=== PATIENT | male | born 1960 | race Caucasian/White ===

== ENCOUNTER 2017-07-26 07:50 | Emergency (ER) | payer OTHER ==
[~2017-07-26] VITALS: Ht 170.2 cm; Wt 83.0 kg
[~2017-07-26 07:50] MED LIST: CRES20TA PO; DICL75 PO; FLON0.053; HYDR-3533 PO
[2017-07-26 08:00] VITALS: BP 176/92; PULSE 64; RESP 16; TEMP 96.9; O2SAT 96
[2017-07-26] MEDS ORDERED: SODIUM CHLOR 0.9% 1000 ML INJ 1,000 ML IV SCH (08:05)
[2017-07-26] MEDS ORDERED: ROSU20 PO (08:08)
[2017-07-26] MEDS ORDERED: FLUT1SPR5 EACH NARE (08:08)
[2017-07-26] MEDS ORDERED: ONDANSETRON HCL 4 MG/2 ML VIAL IVP ONE (08:15)
[2017-07-26] MEDS ORDERED: MORPHINE SULFATE 4 MG/ML INJ IV PUSH ONE (08:15)
[2017-07-26] MEDS ORDERED: SODIUM CHLORIDE 0.9% FLUSH 10 ML FLUSH IV FLUSH PRN (08:15)
--- NOTE | 2017-07-26 08:25 | PD ---
HPI Chief Complaint: Abdominal Pain Time Seen by Provider: 08:02 Travel History International Travel<30 days: No Contact w/Intl Traveler<30days: No Traveled to known affect area: No History of Present Illness HPI Patient is a 56 -year-old male who presents to emergency with complaints of abdominal pain. Patient reports the abdominal pain began yesterday morning, his pain is lower abdominal pain with associated diarrhea. Patient with no nausea or vomiting, no fever or chills. He reports that he thought that he initially ate bad sushi 3 days ago and had a stomach bug. Reports that the pain is not going away. Patient denies any recent travels or trips. Patient denies any dysuria, hematuria, urinary urgency or frequency or dysuria. He has had a previous colonoscopy which showed hemorrhoids. PFSH Past Medical History Cancer: No Cardiovascular Problems: Yes (ATRIAL SEPTAL DEFECT REPAIR) High Cholesterol: Yes Diabetes: No Hepatitis: No Hiatal Hernia: No Hypertension: No Kidney Stones: Yes (NON-OBSTRUCTING 2007) Respiratory: No Immunizations Current: Yes Thyroid Disease: No Past Surgical History Abdominal Surgery: Yes (SEVERAL HERNIA REPAIR SURGERIES) Cardiac Surgery: Yes (ATRIAL SEPTAL DEFECT REPAIR) Genitourinary Surgery: Yes (VASECTOMY, BASKET RETRIEVAL RENAL CALC.) Pacemaker: No Other Surgery: Yes Social History Alcohol Use: Yes (WINE DAILY) Tobacco Use: No (NEVER) Substance Use: No Allergies-Medications (Allergen,Severity, Reaction): Coded Allergies: Sulfa (Sulfonamide Antibiotics) (Unverified Allergy, Unknown, 07/26/17) penicillin G (Unverified Allergy, Unknown, 07/26/17) Reported Meds & Prescriptions Reported Meds & Active Scripts Active Reported Flonase Nasal [place] (Fluticasone Nasal [place]) 50 Mcg/Act [place] 50 Mcg EACH NARE BID Crestor (Rosuvastatin Calcium) 20 Mg Tab 20 Mg PO HS Review of Systems General / Constitutional: No: Fever, Chills Eyes: No: Visual changes HENT: No: Headaches Cardiovascular: No: Chest Pain or Discomfort, Palpitations Respiratory: No: Shortness of Breath Gastrointestinal: Positive: Diarrhea, Abdominal Pain, No: Nausea, Vomiting, Constipation Genitourinary: No: Dysuria Musculoskeletal: No: Pain Skin: No Rash Neurologic: No: Weakness Psychiatric: No: Depression Endocrine: No: Polydipsia Hematologic/Lymphatic: No: Easy Bruising Physical Exam Narrative GENERAL: mild distress SKIN: Focused skin assessment warm/dry. HEAD: Atraumatic. Normocephalic. EYES: No injection or drainage. ENT: No nasal bleeding or discharge. Mucous membranes pink and moist. NECK: Trachea midline. No JVD. CARDIOVASCULAR: Regular rate and rhythm. No murmur appreciated. RESPIRATORY: No accessory muscle use. Clear to auscultation. Breath sounds equal bilaterally. GASTROINTESTINAL: Abdomen soft, increased tenderness to lower abdomen with no rebound or guarding, nondistended. Hepatic and splenic margins not palpable. MUSCULOSKELETAL: No obvious deformities. No clubbing. No cyanosis. No edema. NEUROLOGICAL: Awake and alert. No obvious cranial nerve deficits. Motor grossly within normal limits. Normal speech. PSYCHIATRIC: Appropriate mood and affect; insight and judgment normal. Data Data Last Documented VS Vital Signs Date Time Temp Pulse Resp B/P (MAP) Pulse Ox O2 Delivery O2 Flow Rate FiO2 07/26/17 08:33 63 16 147/89 (108) 94 Room Air 07/26/17 08:00 96.9 Orders Orders Complete Blood Count With Diff (07/26/17 08:05) Comprehensive Metabolic Panel (07/26/17 08:05) Lipase (07/26/17 08:05) Prothrombin Time / Inr (Pt) (07/26/17 08:05) Act Partial Throm Time (Ptt) (07/26/17 08:05) Urinalysis - C+S If Indicated (07/26/17 08:05) Ct Abd/Pel W Iv Contrast(Rout) (07/26/17 08:05) Iv Access Insert/Monitor (07/26/17 08:05) Ecg Monitoring (07/26/17 08:05) NPO (07/26/17 08:05) Morphine Inj (Morphine Inj) (07/26/17 08:15) Ondansetron Inj (Zofran Inj) (07/26/17 08:15) Sodium Chlor 0.9% 1000 Ml Inj (Ns 1000 M (07/26/17 08:05) Sodium Chloride 0.9% Flush (Ns Flush) (07/26/17 08:15) Iohexol 350 Inj (Omnipaque 350 Inj) (07/26/17 09:28) Ciprofloxacin 400 Mg Premix (Cipro 400 M (07/26/17 10:15) Metronidazole 500 Mg Inj (Flagyl 500 Mg (07/26/17 10:15) Labs Laboratory Tests Test 07/26/17 08:15 07/26/17 09:05 White Blood Count 18.3 TH/MM3 Red Blood Count 5.14 MIL/MM3 Hemoglobin 17.0 GM/DL Hematocrit 49.3 % Mean Corpuscular Volume 95.9 FL Mean Corpuscular Hemoglobin 33.0 PG Mean Corpuscular Hemoglobin Concent 34.5 % Red Cell Distribution Width 12.1 % Platelet Count 142 TH/MM3 Mean Platelet Volume 9.0 FL Neutrophils (%) (Auto) 79.0 % Lymphocytes (%) (Auto) 12.0 % Monocytes (%) (Auto) 7.2 % Eosinophils (%) (Auto) 0.6 % Basophils (%) (Auto) 1.2 % Neutrophils # (Auto) 14.5 TH/MM3 Lymphocytes # (Auto) 2.2 TH/MM3 Monocytes # (Auto) 1.3 TH/MM3 Eosinophils # (Auto) 0.1 TH/MM3 Basophils # (Auto) 0.2 TH/MM3 CBC Comment DIFF FINAL Differential Comment Prothrombin Time 11.4 SEC Prothromb Time International Ratio 1.0 RATIO Activated Partial Thromboplast Time 25.7 SEC Blood Urea Nitrogen 11 MG/DL Creatinine 0.94 MG/DL Random Glucose 138 MG/DL Total Protein 7.6 GM/DL Albumin 4.0 GM/DL Calcium Level 8.5 MG/DL Alkaline Phosphatase 59 U/L Aspartate Amino Transf (AST/SGOT) 27 U/L Alanine Aminotransferase (ALT/SGPT) 67 U/L Total Bilirubin 1.3 MG/DL Sodium Level 139 MEQ/L Potassium Level 3.9 MEQ/L Chloride Level 107 MEQ/L Carbon Dioxide Level 24.5 MEQ/L Anion Gap 8 MEQ/L Estimat Glomerular Filtration Rate 84 ML/MIN Lipase 248 U/L Urine Collection Type CLEAN CATCH Urine Color YELLOW Urine Turbidity CLEAR Urine pH 6.0 Urine Specific [place] 1.023 Urine Protein NEG mg/dL Urine Glucose (UA) NEG mg/dL Urine Ketones NEG mg/dL Urine Occult Blood TRACE Urine Nitrite NEG Urine Bilirubin NEG Urine Leukocyte Esterase NEG Urine RBC 0-3 /hpf Urine Squamous Epithelial Cells 0-5 /hpf Urine Mucus FEW /lpf Microscopic Urinalysis Comment CULT NOT INDICATED Urine Collection Time 09:05 [facility] Medical Decision Making Medical Screen Exam Complete: Yes Emergency Medical Condition: Yes Medical Record Reviewed: Yes Interpretation(s) Vital Signs Date Time Temp Pulse Resp B/P (MAP) Pulse Ox O2 Delivery O2 Flow Rate FiO2 07/26/17 08:00 96.9 64 16 176/92 (120) 96 Differential Diagnosis Differential includes gastroenteritis, gastritis, pyelonephritis, appendicitis, electrolyte abnormality Narrative Course Patient is a 56 year old male who presents to ER with complaints of lower abdominal pain for the past 2 days. Patient with lower abdominal tenderness with no rebound or guarding on exam. VSS. An IV line was established. Lab work including LFT's drawn. Ct of abdomen and pelvis with IV contrast ordered. IVF , antiemetics and pain medication ordered. Patient was placed on a rn cardiac rehab. Vital Signs Date Time Temp Pulse Resp B/P (MAP) Pulse Ox O2 Delivery O2 Flow Rate FiO2 07/26/17 08:33 63 16 147/89 (108) 94 Room Air 07/26/17 08:32 16 07/26/17 08:00 96.9 64 16 176/92 (120) 96 Laboratory Tests Test 07/26/17 08:15 07/26/17 09:05 White Blood Count 18.3 TH/MM3 (4.0-11.0) Red Blood Count 5.14 MIL/MM3 (4.50-5.90) Hemoglobin 17.0 GM/DL (13.0-17.0) Hematocrit 49.3 % (39.0-51.0) Mean Corpuscular Volume 95.9 FL (80.0-100.0) Mean Corpuscular Hemoglobin 33.0 PG (27.0-34.0) Mean Corpuscular Hemoglobin Concent 34.5 % (32.0-36.0) Red Cell Distribution Width 12.1 % (11.6-17.2) Platelet Count 142 TH/MM3 (150-450) Mean Platelet Volume 9.0 FL (7.0-11.0) Neutrophils (%) (Auto) 79.0 % (16.0-70.0) Lymphocytes (%) (Auto) 12.0 % (9.0-44.0) Monocytes (%) (Auto) 7.2 % (0.0-8.0) Eosinophils (%) (Auto) 0.6 % (0.0-4.0) Basophils (%) (Auto) 1.2 % (0.0-2.0) Neutrophils # (Auto) 14.5 TH/MM3 (1.8-7.7) Lymphocytes # (Auto) 2.2 TH/MM3 (1.0-4.8) Monocytes # (Auto) 1.3 TH/MM3 (0-0.9) Eosinophils # (Auto) 0.1 TH/MM3 (0-0.4) Basophils # (Auto) 0.2 TH/MM3 (0-0.2) CBC Comment DIFF FINAL Differential Comment Prothrombin Time 11.4 SEC (9.8-11.6) Prothromb Time International Ratio 1.0 RATIO Activated Partial Thromboplast Time 25.7 SEC (24.3-30.1) Blood Urea Nitrogen 11 MG/DL (7-18) Creatinine 0.94 MG/DL (0.60-1.30) Random Glucose 138 MG/DL (74-106) Total Protein 7.6 GM/DL (6.4-8.2) Albumin 4.0 GM/DL (3.4-5.0) Calcium Level 8.5 MG/DL (8.5-10.1) Alkaline Phosphatase 59 U/L (45-117) Aspartate Amino Transf (AST/SGOT) 27 U/L (15-37) Alanine Aminotransferase (ALT/SGPT) 67 U/L (12-78) Total Bilirubin 1.3 MG/DL (0.2-1.0) Sodium Level 139 MEQ/L (136-145) Potassium Level 3.9 MEQ/L (3.5-5.1) Chloride Level 107 MEQ/L (98-107) Carbon Dioxide Level 24.5 MEQ/L (21.0-32.0) Anion Gap 8 MEQ/L (5-15) Estimat Glomerular Filtration Rate 84 ML/MIN (>89) Lipase 248 U/L (73-393) Urine Collection Type CLEAN CATCH Urine Color YELLOW (YELLW/STRAW) Urine Turbidity CLEAR (CLEAR) Urine pH 6.0 (5.0-8.5) Urine Specific [place] 1.023 (1.002-1.035) Urine Protein NEG mg/dL (NEG-TRACE) Urine Glucose (UA) NEG mg/dL (NEG) Urine Ketones NEG mg/dL (NEG) Urine Occult Blood TRACE (NEG) Urine Nitrite NEG (NEG) Urine Bilirubin NEG (NEG) Urine Leukocyte Esterase NEG (NEG) Urine RBC 0-3 /hpf (0-3) Urine Squamous Epithelial Cells 0-5 /hpf (0-5) Urine Mucus FEW /lpf (OCC) Microscopic Urinalysis Comment CULT NOT INDICATED Urine Collection Time 09:05 CT of abdomen and pelvis with acute diverticulitis. Patient was reevaluated, patient was feeling better after IV fluids, antiemetics and IV morphine. Abdomen is soft, nontender, nondistended, no peritoneal signs. I did review all labs and all studies as well as all findings patient detail. I offered patient admission to the hospital for treatment of acute diverticulitis if he could not tolerate fluids or foods by mouth. Patient requests to be discharged to home, he will return to emergency room as needed. Signs and symptoms of acute abdomen reviewed with patient and his , patient understands when to return to the emergency room. Patient was given a copy of his studies and lab work at discharge, he understands importance of following up with his primary care doctor as well as his geospatial scientist. He will return to the emergency room as needed. Diagnosis Primary Impression: Acute diverticulitis Patient Instructions: General Instructions, Narcotic given in the ED Additional Instructions: Please provide patient with a copy of his studies at discharge Please take all antibiotics as prescribed Return to the emergency if symptoms worsen or progress Return to the emergency room if develop progression of abdominal pain, or nausea vomiting or fever or chills Please follow-up with your primary care doctor Please follow-up with your geospatial scientist Please drink plenty of fluids and eat a bland diet Med/Other Pt SpecificInfo: Prescription(s) given Scripts Ciprofloxacin (Cipro) 500 Mg Tab 500 MG PO BID for Infection for 10 Days, #20 TAB 0 Refills Prov: Lela Hall DO 07/26/17 Metronidazole (Flagyl) 500 Mg Tab 500 MG PO TID for Infection for 10 Days, TAB 0 Refills Prov: Lela Hall DO 07/26/17 Ondansetron (Zofran) 4 Mg Tab 4 MG PO Q6HR Y for NAUSEA OR VOMITING, #20 TAB 0 Refills Prov: Lela Hall DO 07/26/17 Disposition: 01 DISCHARGE HOME Condition: Stable Lela Hall DO Jul 26, 2017 08:25
[2017-07-26 08:30] LABS: AUTOMATED NEUTROPHIL # 14.5 TH/MM3 (1.8-7.7); BASOPHIL # 0.2 TH/MM3 (0-0.2); BASOPHIL % 1.2 % (0.0-2.0); EOSINOPHIL # 0.1 TH/MM3 (0-0.4); EOSINOPHIL % 0.6 % (0.0-4.0); HEMATOCRIT 49.3 % (39.0-51.0); LYMPHOCYTE # 2.2 TH/MM3 (1.0-4.8); MEAN CELL VOLUME 95.9 FL (80.0-100.0); MEAN CORPUSCULAR HGB CONC 34.5 % (32.0-36.0); MONO % 7.2 % (0.0-8.0); PLATELET COUNT 142 TH/MM3 (150-450); RED BLOOD COUNT 5.14 MIL/MM3 (4.50-5.90); RED CELL DISTRIBUTION WIDTH 12.1 % (11.6-17.2); WHITE BLOOD COUNT 18.3 TH/MM3 (4.0-11.0)
[2017-07-26 08:32] LABS: HEMO FLAGS DIFF FINAL
[2017-07-26 08:33] VITALS: BP 147/89; PULSE 63; RESP 16; O2SAT 94
[2017-07-26 08:38] LABS: CHLORIDE 107 MEQ/L (98-107); POTASSIUM 3.9 MEQ/L (3.5-5.1); SODIUM (NA) 139 MEQ/L (136-145)
[2017-07-26 08:42] LABS: APTT (PATIENT) 25.7 SEC (24.3-30.1); PROTHROMBIN TIME - PATIENT 11.4 SEC (9.8-11.6)
[2017-07-26 08:43] LABS: ANION GAP 8 MEQ/L (5-15); BICARBONATE 24.5 MEQ/L (21.0-32.0); BLOOD UREA NITROGEN 11 MG/DL (7-18)
[2017-07-26 08:45] LABS: ALT (GPT) 67 U/L (12-78)
[2017-07-26 08:46] LABS: AST (GOT) 27 U/L (15-37); GLOMERULAR FILTRATION RATE 84 ML/MIN (>89)
[2017-07-26 08:47] LABS: TOTAL BILIRUBIN ADULT 1.3 MG/DL (0.2-1.0)
[2017-07-26 08:48] LABS: ALKALINE PHOSPHATASE 59 U/L (45-117)
[2017-07-26 09:16] LABS: GLUCOSE,URINE NEG (NEG); KETONE, URINE NEG (NEG); NITRITE,URINE NEG (NEG)
[2017-07-26 09:17] LABS: BLOOD, URINE TRACE (NEG)
[2017-07-26 09:20] LABS: METHOD OF COLLECTION CLEAN CATCH; MUCUS URINE FEW /lpf (OCC); URINE COLOR YELLOW (YELLW/STRAW)
[2017-07-26 09:21] LABS: COMMENT (UR) CULT NOT INDICATED; CULTURE IF INDICATED CULT NOT INDICATED; RBC, URINE 0-3 /hpf (0-3); SQUAMOUS EPITHELIAL CELL URINE 0-5 /hpf (0-5)
[2017-07-26 09:25] VITALS: BP 170/101; PULSE 81; RESP 16; O2SAT 96
[2017-07-26] MEDS ORDERED: IOHEXOL 350 MG/ML 10 ML VIAL (for RAD DIAG) IVCONTRAST ONE (09:28)
--- NOTE | 2017-07-26 10:05 | RADRPT ---
EXAM DATE/TIME: 07/26/2017 09:24 [place] COMPARISON: No previous studies available for comparison. INDICATIONS : Mid to lower abdominal pain with irregular bowel movements. IV CONTRAST: 95 cc Omnipaque 350 (iohexol) IV ORAL CONTRAST: No oral contrast ingested. RADIATION DOSE: 13.19 CTDIvol (mGy) MEDICAL HISTORY : Hypercholesterolemia. Renal calculi. Cardiovascular disease SURGICAL HISTORY : Basket retrieval of renal calculi. hernia repair. Atrial defect repair. ENCOUNTER: Initial ACUITY: 3 days PAIN SCALE: 5/10 LOCATION: lower quadrant TECHNIQUE: Volumetric scanning of the abdomen and pelvis was performed. Using automated exposure control and ad justment of the mA and/or kV according to patient size, radiation dose was kept as low as reasonably achievable to obtain optimal diagnostic quality images. DICOM format image data is available electro nically for review and comparison. FINDINGS: LOWER LUNGS: Chronic airway disease with mild peripheral fibrosis is identified in the lung bases. LIVER: Liver is diffusely hypo-dense. There are no focal lesions or evidence of biliary duct dilatation. SPLEEN: Normal size without lesion. PANCREAS: Within normal limits. KIDNEYS: Normal in size and shape. There is no mass, stone or hydronephrosis. ADRENAL GLANDS: Within normal limits. VASCULAR: There is no aortic aneurysm. BOWEL/MESENTERY: Inflammatory process is identified involving the proximal to mid sigmoid colon. There is edematous wa ll thickening with pericolonic stranding and scattered diverticula. There are no mature fluid collect ions. There is no evidence of free air. ABDOMINAL WALL: Within normal limits. RETROPERITONEUM: There is no lymphadenopathy. BLADDER: No wall thickening or mass. REPRODUCTIVE: Within normal limits. INGUINAL: There is no lymphadenopathy or hernia. MUSCULOSKELETAL: Within normal limits for patient age. CONCLUSION: 1. Sigmoid colon inflammatory process characteristic of acute diverticulitis. 2. No evidence of pericolonic abscess or free air. 3. Hepatic steatosis. 4. 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 This report was verified electronically.
[2017-07-26] MEDS ORDERED: metroNIDAZOLE 500 MG INJ 100 ML IV ONE (10:15)
[2017-07-26] MEDS ORDERED: CIPROFLOXACIN 400 MG PREMIX 200 ML IV ONE (10:15)
[2017-07-26 10:30] VITALS: BP 151/81; PULSE 75; RESP 16; O2SAT 95
[2017-07-26] MEDS ORDERED: CIPR-9 PO (10:30)
[2017-07-26] MEDS ORDERED: METR-1 PO (10:30)
[2017-07-26] MEDS ORDERED: ZOFR4TAB PO (10:30)
[2017-07-26 11:30] VITALS: BP 138/85; PULSE 89; RESP 16; O2SAT 95
[2017-07-26 12:30] VITALS: BP 135/80; PULSE 72; RESP 16; O2SAT 95
== END 2017-07-26 13:22 | disposition home or self-care (01) ==
LOC: PHED 07:50
DX: K57.92 Diverticulitis of intestine, part unspecified, without perforation or abscess without bleeding (principal); E78.5 Hyperlipidemia, unspecified
CPT/HCPCS: 74177; 80053; 81001; 83690; 85025; 85610; 85730; 96361; 96365; 96367; 96375; 99285; J0744; J2270; J2405; J7030; Q9967

== ENCOUNTER 2018-10-02 11:31 | Inpatient (IN) ==
[2018-10-02] MEDS ORDERED: Sod Chloride 0.9% Inj 1,000 ML IV.SIG ONE ×2 (12:01)
--- NOTE | 2018-10-02 12:06 | ED ---
HPI General Chief complaint: Nausea/Vomiting/Diarrhea Stated complaint: GI/ Complaint Time Seen by Provider: 10/02/18 11:53 Source: patient Mode of arrival: ambulatory Limitations: no limitations History of Present Illness HPI Narrative: Patient is a 57-year-old male who presents to the emergency room for evaluation of nausea, vomiting and possible UTI. Patient reports that since last night, he has not been feeling well. Patient reports that he has been feeling nauseous and vomited 4 times last night. Patient woke up this morning and was nervous to eat anything as he still felt nauseous. Patient reports that in addition to this, he is having urine urgency and frequency as well as dysuria. Patient is concerned for possible UTI. Patient reports that he went to an urgent care center today and was told to go to the emergency room for evaluation of possible pyelonephritis. Patient reports that he has been feeling subjective fevers, he has not taking any antipyretics, he is afebrile right now. Patient denies any abdominal pain. Patient also reports that in addition to his nausea and vomiting, he has been having myalgias. MD complaint: Reports nausea and vomiting Onset (ago): hour(s) Associated Abdominal Pain: No Related Data Home Medications Medication Instructions Recorded Confirmed No Known Home Medications 10/02/18 10/02/18 Allergies Allergy/AdvReac Type Severity Reaction Status Date / Time penicillin G Allergy Unknown Unverified 07/26/17 08:03 Sulfa (Sulfonamide Allergy Unknown Unverified 07/26/17 08:03 Antibiotics) Review of Systems ROS: all other systems reviewed are negative PMFSH History History Provided By: Patient Social History Social History Substance History: No History of Abuse Smoking Status: Never smoker How Often Do You Have a Drink Containing Alcohol: 4 or more times a week Recent Travel in [facility] within the Last 8 Weeks: No Recent Out of Country Travel within the Last 8 Weeks: No Exam Narrative Exam Narrative: GENERAL: Mild distress SKIN: Focused skin assessment warm/dry. HEAD: Atraumatic. Normocephalic. EYES: Pupils equal and round. No scleral icterus. No injection or drainage. ENT: No nasal bleeding or discharge. Mucous membranes pink and moist. NECK: Trachea midline. No JVD. CARDIOVASCULAR: Regular rate and rhythm. No murmur appreciated. RESPIRATORY: No accessory muscle use. Clear to auscultation. Breath sounds equal bilaterally. GASTROINTESTINAL: Abdomen soft, non-tender, nondistended. Hepatic and splenic margins not palpable. MUSCULOSKELETAL: No obvious deformities. No clubbing. No cyanosis. No edema. NEUROLOGICAL: Awake and alert. No obvious cranial nerve deficits. Motor grossly within normal limits. Normal speech. PSYCHIATRIC: Appropriate mood and affect; insight and judgment normal. Course Initial Documented Vital Signs Temperature 98.3 F 10/02/18 11:39 Pulse Rate 89 10/02/18 11:39 Respiratory Rate 16 10/02/18 11:39 Blood Pressure 137/65 10/02/18 11:39 Pulse Oximetry 96 10/02/18 11:39 Last Documented Vital Signs Temperature 98.3 F 10/02/18 11:39 Pulse Rate 89 10/02/18 11:39 Respiratory Rate 16 10/02/18 11:39 Blood Pressure 137/65 10/02/18 11:39 Pulse Oximetry 96 10/02/18 11:39 Medical Decision Making MDM Narrative Medical decision making narrative: During the course of the patients emergency department visit, the patients history, examination, and differential diagnosis were reviewed with the patient. The patient was placed on a chainstitch zipper setter with oximetry and frequent blood pressure monitoring. The patient had an IV access obtained and blood work sent for analysis. The patient was initially provided IVF as well as zofran. Will check UA for possible UTI. 2 liters of IVF were ordered No imaging studies were ordered as patient has no abdominal pain, no cough or congestion. Plan to reevaluate after he has received his IV fluids as well as his Zofran. CBC with marked Leukocytosis with left shift. Chemistry is unremarkable. UA with innumerable WBC's reflex culture pending. Pt started on cipro empirically. Discussed with Dr. Navarro who accepted admit, orders placed. Medical Screen Exam Complete: Yes Emergency Medical Condition: Yes Differential Diagnosis Differential Diagnosis: Gastritis, gastroenteritis, UTI, pyelonephritis Medical Records Medical records reviewed: Yes I reviewed the patient's medical records. Lab Data Lab results reviewed: Yes I reviewed the patient's lab results. Result diagrams: 10/02/18 12:21 10/02/18 12:21 Lab Results 10/02/18 10/02/18 10/02/18 Range/Units 12:09 12:21 12:21 WBC 29.7 H (4.0-11.0) th/mm3 RBC 4.64 (4.50-5.90) mil/mm3 Hgb 16.1 (13.0-17.0) gm/dL Hct 45.2 (39.0-51.0) % MCV 97.5 (80.0-100.0) fL MCH 34.7 H (27.0-34.0) pg MCHC 35.6 (32.0-36.0) % RDW 12.9 (11.6-17.2) % Plt Count 142 L (150-450) th/mm3 MPV 9.0 (7.0-11.0) fL Prelim Diff (Auto) Slide review pending Neut % (Auto) 86.3 H (16.0-70.0) % Lymph % (Auto) 5.4 L (9.0-44.0) % [place] % (Auto) 8.1 H (0.0-8.0) % Eos % (Auto) 0.0 (0.0-4.0) % Baso % (Auto) 0.2 (0.0-2.0) % Neut # (Auto) 25.6 H (1.8-7.7) th/mm3 Lymph # (Auto) 1.6 (1.0-4.8) th/mm3 [place] # (Auto) 2.4 H (0.0-0.9) th/mm3 Eos # (Auto) 0.0 (0.0-0.4) th/mm3 Baso # (Auto) 0.1 (0.0-0.2) th/mm3 WBC Differential Manual diff final Seg Neuts % (Manual) 72 H (16-70) % Band Neuts % (Manual) 11 H (0-6) % Lymphocytes % (Manual) 9 (9-44) % Monocytes % (Manual) 8 (0-8) % Abs Neuts (Manual) 24.7 H (1.8-7.7) th/mm3 Differential Comment . Platelet Estimate Low L (Normal) Platelet Morphology Normal (Normal) Sodium 137 (136-145) meq/L Potassium 3.9 (3.5-5.1) meq/L Chloride 103 (98-107) meq/L Carbon Dioxide 27.8 (21.0-32.0) meq/L Anion Gap 6 (5-15) meq/L BUN 13 (7-18) mg/dL Creatinine 1.26 (0.60-1.30) mg/dL Estimated GFR 59 L (>89) mL/min Random Glucose 120 H (74-106) mg/dL Lactic Acid (0.4-2.0) mmol/L Calcium 8.7 (8.5-10.1) mg/dL Total Bilirubin 1.7 H (0.2-1.0) mg/dL AST 16 (15-37) U/L ALT 29 (12-78) U/L Alkaline Phosphatase 64 (45-117) U/L Total Protein 8.5 H (6.4-8.2) g/dL Albumin 4.0 (3.4-5.0) g/dL Lipase 102 (73-393) U/L Urine Color Yellow (Yellw/Straw) Urine Clarity Cloudy H (Clear) Urine pH 6.0 (5.0-8.5) Ur Specific [place] 1.018 (1.002-1.035) Urine Protein 30 H (Neg-Trace) mg/dL Urine Glucose (UA) Negative (Negative) mg/dL Urine Ketones Negative (Negative) mg/dL Urine Occult Blood Small H (Negative) Urine Nitrate Negative (Negative) Urine Bilirubin Negative (Negative) Urine Urobilinogen Less than 2 (Less than 2) mg/dL Ur Leukocyte Esterase Large H (Negative) Urine RBC 9 H (0-3) /hpf Urine WBC (0-5) /hpf Urine Bacteria Rare H (None) /hpf Urine Mucus Few H (Occasional) /lpf Micro UA Comment Culture indicated Ur Microscopic Review Not Reportable Urine Culture Comments Culture indicated 10/02/18 Range/Units 13:12 WBC (4.0-11.0) th/mm3 RBC (4.50-5.90) mil/mm3 Hgb (13.0-17.0) gm/dL Hct (39.0-51.0) % MCV (80.0-100.0) fL MCH (27.0-34.0) pg MCHC (32.0-36.0) % RDW (11.6-17.2) % Plt Count (150-450) th/mm3 MPV (7.0-11.0) fL Prelim Diff (Auto) Neut % (Auto) (16.0-70.0) % Lymph % (Auto) (9.0-44.0) % [place] % (Auto) (0.0-8.0) % Eos % (Auto) (0.0-4.0) % Baso % (Auto) (0.0-2.0) % Neut # (Auto) (1.8-7.7) th/mm3 Lymph # (Auto) (1.0-4.8) th/mm3 [place] # (Auto) (0.0-0.9) th/mm3 Eos # (Auto) (0.0-0.4) th/mm3 Baso # (Auto) (0.0-0.2) th/mm3 WBC Differential Seg Neuts % (Manual) (16-70) % Band Neuts % (Manual) (0-6) % Lymphocytes % (Manual) (9-44) % Monocytes % (Manual) (0-8) % Abs Neuts (Manual) (1.8-7.7) th/mm3 Differential Comment Platelet Estimate (Normal) Platelet Morphology (Normal) Sodium (136-145) meq/L Potassium (3.5-5.1) meq/L Chloride (98-107) meq/L Carbon Dioxide (21.0-32.0) meq/L Anion Gap (5-15) meq/L BUN (7-18) mg/dL Creatinine (0.60-1.30) mg/dL Estimated GFR (>89) mL/min Random Glucose (74-106) mg/dL Lactic Acid 1.9 (0.4-2.0) mmol/L Calcium (8.5-10.1) mg/dL Total Bilirubin (0.2-1.0) mg/dL AST (15-37) U/L ALT (12-78) U/L Alkaline Phosphatase (45-117) U/L Total Protein (6.4-8.2) g/dL Albumin (3.4-5.0) g/dL Lipase (73-393) U/L Urine Color ([place]/Straw) Urine Clarity (Clear) Urine pH (5.0-8.5) Ur Specific [place] (1.002-1.035) Urine Protein (Neg-Trace) mg/dL Urine Glucose (UA) (Negative) mg/dL Urine Ketones (Negative) mg/dL Urine Occult Blood (Negative) Urine Nitrate (Negative) Urine Bilirubin (Negative) Urine Urobilinogen (Less than 2) mg/dL Ur Leukocyte Esterase (Negative) Urine RBC (0-3) /hpf Urine WBC (0-5) /hpf Urine Bacteria (None) /hpf Urine Mucus (Occasional) /lpf Micro UA Comment Ur Microscopic Review Urine Culture Comments Discharge Plan Discharge Disposition Patient Disposition: ED Admit(ED Internal Use Only) Discharge Condition Condition: Stable Discharge Order Discharge Orders: ED Use Only Admit Order (Routine); Ordered 10/02/18 Ordered By: Cinthia Ybarra Discharge Details Diagnosis: Acute pyelonephritis Physicians Team ED Provider: Lela Hall ED Midlevel Provider: Cinthia Ybarra Primary Care Provider: Alhaji Castro Rxs /Orders / Referrals /Forms Prescriptions: No Action No Known Home Medications RF: 0 Status ED Status: Admitted Patient
[2018-10-02 12:42] LABS: Baso # (Auto) 0.1 th/mm3 (0.0-0.2); Baso % (Auto) 0.2 % (0.0-2.0); Hematocrit 45.2 % (39.0-51.0); Hemoglobin 16.1 gm/dL (13.0-17.0); Lymph # (Auto) 1.6 th/mm3 (1.0-4.8); Lymph % (Auto) 5.4 % (9.0-44.0); Mean Corpuscular HGB Conc 35.6 % (32.0-36.0); Mean Corpuscular Hemoglobin 34.7 pg (27.0-34.0); Mean Corpuscular Volume 97.5 fL (80.0-100.0); Mono # (Auto) 2.4 th/mm3 (0.0-0.9); Mono % (Auto) 8.1 % (0.0-8.0); Neut # (Auto) 25.6 th/mm3 (1.8-7.7); Neut % (Auto) 86.3 % (16.0-70.0); Platelet Count 142 th/mm3 (150-450); Red Blood Count 4.64 mil/mm3 (4.50-5.90); Red Cell Distribution Width 12.9 % (11.6-17.2); White Blood Count 29.7 th/mm3 (4.0-11.0)
[2018-10-02 12:48] LABS: Bacteria,Urine Rare /hpf; Bilirubin,Urine Negative (Negative); Clarity,Urine Cloudy (Clear); Color,Urine Yellow (Yellw/Straw); Glucose,Urine (UA) Negative (Negative); Leukocyte Esterase,Urine Large (Negative); Mucus,Urine Few /lpf (Occasional); Nitrite,Urine Negative (Negative); Specific Gravity,Urine 1.018 (1.002-1.035)
[2018-10-02 12:56] LABS: Alanine Aminotransferase 29 U/L (12-78); Anion Gap 6 meq/L (5-15); Aspartate Aminotransferase 16 U/L (15-37); Blood Urea Nitrogen 13 mg/dL (7-18); Calcium 8.7 mg/dL (8.5-10.1); Carbon Dioxide 27.8 meq/L (21.0-32.0); Chloride 103 meq/L (98-107); Glomerular Filtration Rate 59 mL/min (>89); Glucose,Random 120 mg/dL (74-106); Lipase 102 U/L (73-393); Potassium 3.9 meq/L (3.5-5.1); Sodium 137 meq/L (136-145)
[2018-10-02 12:59] LABS: Alkaline Phosphatase 64 U/L (45-117); Total Protein 8.5 g/dL (6.4-8.2)
[2018-10-02] MEDS ORDERED: Ciprofloxacin 400 MG/200 ML 400 MG/200 ML PIGGYBACK IV.SIG ONE (12:59)
[2018-10-02 13:11] LABS: Lymphocytes 9 % (9-44); Monocytes 8 % (0-8)
[2018-10-02 13:12] LABS: Platelet Morphology Normal (Normal)
[2018-10-02] MEDS ORDERED: Bisacodyl 10 MG Supp RECTAL PRN (14:02)
[2018-10-02] MEDS: Ciprofloxacin 400 MG/200 ML 400 MG/200 ML PIGGYBACK IV.SIG SCH (14:22)
[2018-10-02] MEDS: Enoxaparin Inj 30 MG/0.3 ML Syringe SQ SCH (14:33)
[2018-10-02] MEDS: Sod Chloride 0.9% Inj 1,000 ML IV.CONT SCH (14:33)
--- NOTE | 2018-10-02 14:53 | P.HPIM ---
History of Present Illness Primary Care Physician: Alhaji Castro MD History of Present Illness: 57 yo m presents with a few days of dysuria and urgency followed by vomiting last night poor appetite, and muscle aches in his legs and feeling very weak and light headed with chills off and on. He denies fever, hematuria, flank pain, diarrhea, recent antibiotic use, he does have a history of kidney stones in the past. In the ER he is found to have a wbc of 29 and evidence of a uti. PMHX: dyslipidemia kidney stones, ASD PSXhx: kidney stone retreival ASD repair in 1966 3 hernia repairs left inguinal, 1 on right knee arthroscopy Soc hx : denies tobacco, drinks wine 3-5 x wk ALL: bactrim, PCN FAM HX no premature cad, cva, ca Inpatient Certification Inpatient Certification: I certify that the inpatient services were ordered in accordance with Medicare regulations governing the order. This includes certification that hospital inpatient services are reasonable and necessary and in the case of services not specified as inpatient-only under 42 CFR 419.22(n), that they are appropriately provided as inpatient services in accordance to with the 2-midnight benchmark under 43 CFR 412.3(e) Estimated Total Length of Stay (Days): 2 Plans for Post Hospital Care: Home Review of Systems Review of Systems: all other systems reviewed are negative [facility] Social History Social History Substance History: No History of Abuse Smoking Status: Never smoker How Often Do You Have a Drink Containing Alcohol: 4 or more times a week Recent Travel in [facility] within the Last 8 Weeks: No Recent Out of Country Travel within the Last 8 Weeks: No Immunization History Tetanus Immunization: <5 Years Medications and Allergies Allergies Allergy/AdvReac Type Severity Reaction Status Date / Time penicillin G Allergy Unknown Unverified 07/26/17 08:03 Sulfa (Sulfonamide Allergy Unknown Unverified 07/26/17 08:03 Antibiotics) Home Medications Medication Instructions Recorded Confirmed Type No Known Home Medications 10/02/18 10/02/18 History Active Medications: Active Medications Acetaminophen (Tylenol) 650 mg PO Q4H PRN PRN Reason: Temp > 100.4 Al Hydroxide/Mg Hydroxide (Milk Of Magnesia Liq) 30 ml PO Q12H PRN PRN Reason: Mild Constipation Bisacodyl (Dulcolax Supp) 10 mg RECTAL DAILY PRN PRN Reason: SEVERE CONSITIPATION Enoxaparin Sodium (Lovenox Inj) 30 mg SQ Q24H [facility] Last Admin: 10/02/18 14:33 Dose: 30 mg Sodium Chloride (Ns Inj) 1,000 mls @ 100 mls/hr IV.CONT .Q10H [facility] Last Admin: 10/02/18 14:33 Dose: 100 mls/hr Ciprofloxacin/Dextrose (Cipro 400 Mg/200 Ml Inj) 400 mg in 200 mls @ 200 mls/ hr IV.SIG Q12H [facility] Last Admin: 10/02/18 14:22 Dose: Not Given Lactulose (Lactulose Liq) 30 ml PO DAILY PRN PRN Reason: SEVERE CONSITIPATION Ondansetron HCl (Zofran Inj) 4 mg IV.PUSH Q6H PRN PRN Reason: NAUSEA OR VOMITING Senna/Docusate Sodium (Gloria-Colace) 1 tab PO BID [facility] Sennosides (Senokot) 17.2 mg PO Q12H PRN PRN Reason: Moderate Constipation Sodium Chloride (Ns Flush) 2 ml IV.FLUSH PRN PRN PRN Reason: FLUSH AFTER USING IV ACCESS Sodium Chloride (Ns Flush) 2 ml IV.FLUSH BID GLAIDS Sodium Chloride (Ns Flush) 2 ml IV.FLUSH PRN PRN PRN Reason: FLUSH AFTER USING IV ACCESS Physical Exam Vital signs: Last Vital Signs Temp 100.5 F H 10/02/18 14:20 Pulse 89 10/02/18 11:39 Resp 16 10/02/18 11:39 BP 137/65 10/02/18 11:39 Pulse Ox 96 10/02/18 11:39 Intake & Output 09/30/18 10/01/18 10/02/18 10/03/18 06:59 06:59 06:59 06:59 Intake Total 2200 / 2200 Balance 2200 / 2200 Weight 79.379 kg WDWN 57yo w m aaox3 nad pleasant heent perr eomi, om dry post pharnyx clear no face assymetry, no gum lip dental lesions noted neck supple no jvd trachea midline thyroid smooth not enlarged ant chest wall no mass or tenderness to palpation heart s1s2 reg without gallops clicks murmurs Lungs clear to auscultation without wheeze rales or rhonchi, no dullness to percussion or fremitus back exam no cva tenderness or spinal point tenderness, no mass abd soft nondt pos bs, no mass no guarding rebound or rigidity lymph nodes no inguinal axillary or cervical lad noted ext no clubbing cyanosis or calf tenderness, no shanti, neurologic moving all ext with full symmetric strength, no clonus or rigidity skin clamy, no mottling, fair turgor, no open sores or rash noted Results Labs CBC & Chem 7: 18 12:21 1218 12:21 Caprini VTE Risk Assessment Caprin VTE Risk Assessment: Moderate/High Risk (score >= 2) Caprini Risk Assessment Model: Point Value = 1 Point Value = 2 Point Value = 3 Point Value = 5 Age 41-60 Minor surgery BMI > 25 kg/m2 Swollen legs Varicose veins or History of unexplained or recurrent spontaneous Oral contraceptives or hormone replacement Sepsis (< 1 month) Serious lung disease, including pneumonia (< 1 month) Abnormal pulmonary function Acute myocardial infarction Congestive heart failure (< 1 month) History of inflammatory bowel disease Medical patient at bed rest Age 61-74 Arthroscopic surgery Major open surgery (> 45 min) Laparoscopic surgery (> 45 min) Malignancy Confined to bed (> 72 hours) Immobilizing plaster cast Central venous access Age >= 75 History of VTE Family history of VTE Factor V Leiden Prothrombin [id number] Lupus anticoagulant Anticardiolipin antibodies Elevated serum homocysteine Heparin-induced thrombocytopenia Other congenital or acquired thrombophilia Stroke (< 1 month) Elective arthroplasty Hip, pelvis, or leg fracture Acute spinal cord injury (< 1 month) Prophylaxis Regimen: Total Risk Factor Score Risk Level Prophylaxis Regimen 0-1 Low Early ambulation 2 Moderate Order ONE of the following: *Sequential Compression Device (SCD) *Heparin 5000 units SQ BID 3-4 Higher Order ONE of the following medications: *Heparin 5000 units SQ TID *Enoxaparin/Lovenox 40 mg SQ daily (WT < 150 kg, CrCl > 30 mL/min) *Enoxaparin/Lovenox 30 mg SQ daily (WT < 150 kg, CrCl > 10-29 mL/min) *Enoxaparin/Lovenox 30 mg SQ BID (WT < 150 kg, CrCl > 30 mL/min) AND/OR *Sequential Compression Device (SCD) 5 or more Highest Order ONE of the following medications: *Heparin 5000 units SQ TID (Preferred with Epidurals) *Enoxaparin/Lovenox 40 mg SQ daily (WT < 150 kg, CrCl > 30 mL/min) *Enoxaparin/Lovenox 30 mg SQ daily (WT < 150 kg, CrCl > 10-29 mL/min) *Enoxaparin/Lovenox 30 mg SQ BID (WT < 150 kg, CrCl > 30 mL/min) AND *Sequential Compression Device (SCD) Assessment and Plan Plan UTI w possible PYELONEPHRITIS w SIRS bandemia, will get renal us eval for hydro, follow up cultures, cont iv abx. DYSLIPIDEMIA statin at home resume THROMBOCYTOPENIA mild prob due to infection DEHYDRATION mild - fluids dvt prophylaxis - lovenox dispo- home when stable
[2018-10-02] MEDS: Acetaminophen 325 MG Tablet PO PRN (17:32)
[2018-10-02] MEDS: Senna/Docusate Sodium 8.6/50 MG Tablet PO SCH ×2 (21:32→21:38)
[2018-10-03] MEDS: Sod Chloride 0.9% Inj 1,000 ML IV.CONT SCH ×3 (00:39→21:39)
[2018-10-03] MEDS: Ciprofloxacin 400 MG/200 ML 400 MG/200 ML PIGGYBACK IV.SIG SCH (02:21)
[2018-10-03 07:35] LABS: Calcium 7.6 mg/dL (8.5-10.1); Carbon Dioxide 22.8 meq/L (21.0-32.0); Potassium 3.5 meq/L (3.5-5.1)
[2018-10-03] MEDS: Senna/Docusate Sodium 8.6/50 MG Tablet PO SCH ×2 (09:02→21:39)
[2018-10-03] MEDS: Acetaminophen 325 MG Tablet PO PRN ×2 (12:26→23:13)
[2018-10-03] MEDS: Vancomycin Inj 1,000 MG in Sodium Chlor 0.9% Inj 250 ML IV.SIG SCH (13:58)
[2018-10-03] MEDS: Enoxaparin Inj 30 MG/0.3 ML Syringe SQ SCH (14:01)
--- NOTE | 2018-10-03 14:22 | P.PNIM ---
Subjective Interval history: 57-year-old male admitted overnight with pyelonephritis. Today his blood cultures returned back gram-positive rods. He states he feels better than admission, but is still having fevers and feels like his improvement has plateaued. I explained to him he needs increased coverage with antibiotics to cover for sepsis now. Physical Exam Vital signs: Last Vital Signs Temp 98.5 F 10/03/18 13:51 Pulse 85 10/03/18 12:00 Resp 18 10/03/18 12:00 BP 107/93 H 10/03/18 12:00 Pulse Ox 94 L 10/03/18 12:00 Intake & Output 10/01/18 10/02/18 10/03/18 10/04/18 06:59 06:59 06:59 06:59 Intake Total 4000 / 4000 1000 / 1000 Balance 4000 / 4000 1000 / 1000 Weight 79.4 kg Narrative: GENERAL: AAOx3, no acute distress SKIN: Warm and dry. No rashes HEAD: Atruamtic, normocephalic. EYES: No scleral icterus. No injection or drainage. ENT: Moist mucous membranes, patent nares, no erythema of oropharynx. NECK: Supple, trachea midline. No JVD or lymphadenopathy. Normal thyroid. CARDIOVASCULAR: Borderline tachycardia. No murmurs, gallops, or rubs. RESPIRATORY: Breath sounds clear equal bilaterally. No crackles or wheezes. No accessory muscle use. GASTROINTESTINAL: Abdomen soft, non-tender, nondistended, normal active bowel sounds MUSCULOSKELETAL: No cyanosis, or edema. NEURO: CN II-XII grossly intact, no focal deficits, no slurring of speech Results Labs CBC & Chem 7: 10/02/18 12:21 10/03/18 06:07 Labs: Microbiology 10/02/18 13:05 Blood - Peripheral Aerobic Blood Culture - Preliminary Pseudomonas aeruginosa 10/02/18 13:05 Blood - Peripheral Anaerobic Blood Culture - Preliminary No growth in 1 day 10/02/18 12:09 Clean Catch Urine Urine Culture - Preliminary Pseudomonas species 10/02/18 13:10 Blood - Peripheral Aerobic Blood Culture - Preliminary gram negative rods 10/02/18 13:10 Blood - Peripheral Anaerobic Blood Culture - Preliminary No growth in 1 day 10/02/18 12:21 Nasal Wash Influenza Types A,B Antigen - Final Negative for FLU A and B antigen Infection due to influenza A or B cannot be ruled out since the antigen present in the sample may be below the detection limit of the test. Assessment and Plan Plan Pyelonephritis Ascending urinary tract infection with high-grade fever Patient's history only provides and so that he has a new hot tub, has a history of hemorrhoids Given Cipro with moderate improvement but now with positive blood cultures Ultrasound pending Sepsis Gram-negative rods returned and his blood culture Aztreonam and vancomycin selected to replace Cipro Infectious disease consulted to assist with antibiotic selection Follow clinically, follow temperature trends Dehydration Continue with gentle IV fluid rehydration, patient has improved DVT Prophylaxis Lovenox Progress Note: Quality VTE Deep Vein Thrombosis/Pulmonary Embolism Present on Admission: No
[2018-10-04] MEDS: Sod Chloride 0.9% Inj 1,000 ML IV.CONT SCH (07:49)
[2018-10-04] MEDS: Acetaminophen 325 MG Tablet PO PRN ×4 (07:58→20:09)
[2018-10-04] MEDS: Senna/Docusate Sodium 8.6/50 MG Tablet PO SCH ×2 (07:59→20:08)
[2018-10-04] MEDS: Vancomycin Inj 1,000 MG in Sodium Chlor 0.9% Inj 250 ML IV.SIG SCH (12:04)
--- NOTE | 2018-10-04 14:03 | P.CONID ---
History of Present Illness Service: ID Consult date: 10/04/18 Requesting Physician: Antoine Rock Reason for Consult: sepsis UTI Primary Care Provider: Alhaji Castro MD History of Present Illness: 57 yo male presented with nausea, vomiting diarrhea x 1 day + suprapubic pain and difficulty voiding on presentation as well WBC of 29 K on presentation and fever of 101.9 on presntation H/o diverticullitis about 1 year ago H/o L kidney stones 5 years ago - sp urological precedure His blood clx are positive for PSAE Abnormal UA with pyuria , clx + for PSAE as well, putnam S Some remote PCN allergy history, unaware of a type started on azacrtam, vancomcyin Review of Systems All other systems reviewed negative except as stated in HPI [facility] - History History Provided By: Patient - Medical History Medical History: Medical History (Last Updated 10/04/18 @ 14:12 by Gifty Parmar MD) Diverticulitis Kidney stone on left side - Surgical History Surgical History: Surgical History (Last Updated 10/04/18 @ 14:12 by Gifty Parmar MD) No history of previous surgery - Family History Family History: Family History (Last Updated 10/04/18 @ 14:12 by Gifty Parmar MD) Father Prostate cancer - Social History I have reviewed the patient's Social History: Yes - Tobacco History Second Hand Smoke Exposure: No Smoking Status: Never smoker - Alcohol History How Often Do You Have a Drink Containing Alcohol: 2 to 4 times a month - Substance Use History Substance History: No History of Abuse - Travel History Recent Travel in the [place] Within the Last 8 Weeks: No Recent Travel Out of the Country Within the Last 8 Weeks: No - Immunization History Tetanus Immunization: <5 Years Hx Influenza Vaccine This Season: No Medications and Allergies Active Medications: Active Medications Acetaminophen (Tylenol) 650 mg PO Q4H PRN PRN Reason: PAIN 1-10 AND/OR FEVER >101F Last Admin: 10/04/18 12:05 Dose: 650 mg Al Hydroxide/Mg Hydroxide (Milk Of Magnesia Liq) 30 ml PO Q12H PRN PRN Reason: Mild Constipation Bisacodyl (Dulcolax Supp) 10 mg RECTAL DAILY PRN PRN Reason: SEVERE CONSITIPATION Diatrizoate Meglum/Diatrizoate Sod ( Gastroview Liq) 18 ml PO ONCE ONE; Protocol Stop: 10/04/18 14:01 Enoxaparin Sodium (Lovenox Inj) 30 mg SQ Q24H [facility] Last Admin: 10/03/18 14:01 Dose: 30 mg Sodium Chloride (Ns Inj) 1,000 mls @ 100 mls/hr IV.CONT .Q10H [facility] Last Infusion: 10/04/18 07:49 Dose: Infused Vancomycin HCl 1,000 mg/ (Sodium Chloride) 250 mls @ 250 mls/hr IV.SIG Q24H [facility] Last Infusion: 10/04/18 12:40 Dose: Infused Cefepime HCl 2,000 mg/ Sodium (Chloride) 100 mls @ 200 mls/hr IV.SIG Q8H [facility] Lactulose (Lactulose Liq) 30 ml PO DAILY PRN PRN Reason: SEVERE CONSITIPATION Ondansetron HCl (Zofran Inj) 4 mg IV.PUSH Q6H PRN PRN Reason: NAUSEA OR VOMITING Senna/Docusate Sodium (Gloria-Colace) 1 tab PO BID [facility] Last Admin: 10/04/18 07:59 Dose: 1 tab Sennosides (Senokot) 17.2 mg PO Q12H PRN PRN Reason: Moderate Constipation Sodium Chloride (Ns Flush) 2 ml IV.FLUSH PRN PRN PRN Reason: FLUSH AFTER USING IV ACCESS Sodium Chloride (Ns Flush) 2 ml IV.FLUSH BID [facility] Last Admin: 10/04/18 07:59 Dose: Not Given Sodium Chloride (Ns Flush) 2 ml IV.FLUSH PRN PRN PRN Reason: FLUSH AFTER USING IV ACCESS Allergies Allergy/AdvReac Type Severity Reaction Status Date / Time penicillin G Allergy Unknown Rash Verified 10/02/18 18:19 Sulfa (Sulfonamide Allergy Unknown Rash Verified 18 18:19 Antibiotics) Home Medications Medication Instructions Recorded Confirmed Type No Known Home Medications 10/02/18 10/02/18 History Exam Vital signs: Vital Signs 10/03/18 16:00 10/03/18 20:00 10/03/18 23:51 Temperature 98.3 F 99.8 F H 98.0 F Pulse Rate 80 84 88 Respiratory Rate 18 17 18 Blood Pressure 108/54 L 112/63 125/53 L Pulse Oximetry 95 95 95 10/04/18 08:00 10/04/18 12:00 Temperature 97.6 F 97.7 F Pulse Rate 62 75 Respiratory Rate 15 13 Blood Pressure 130/62 127/68 Pulse Oximetry 98 96 Intake & Output 10/03/18 10/04/18 10/04/18 18:59 06:59 18:59 Intake Total 2059 1900 / 1900 1250 / 1250 Balance 2059 1900 / 1900 1250 / 1250 Weight 79.4 kg Intake: IV 1350 / 1350 1200 / 1200 1250 / 1250 NS Inj 1,000 ML @ 100 mls/hr IV 1000 / 1000 1000 / 1000 1000 / 1000 .CONT .Q10H [facility] Rx#:[id number] Azactam Inj 1,000 MG In NS Inj 100 / 100 200 / 200 100 ML @ 200 mls/hr IV.SIG Q8H [facility] Rx#:[id number] Vancomycin Inj 1,000 MG In NS 250 / 250 250 / 250 Inj 250 ML @ 250 mls/hr IV.SIG Q24H [facility] Rx#:[id number] Oral 710 / 710 700 / 700 Other: # Voids 3 2 Date of Last Bowel Movement 10/01/18 10/03/18 # Bowel Movements 1 - Constitutional no acute distress, average body habitus - Routine HEENT Exam Head: Present: normocephalic, atraumatic Eye: Present: EOMI, PERRL ENT: Present: mucous membranes moist, oropharynx clear - Routine Neck Exam Present: supple, full ROM. Absent: JVD - Routine Chest/Breast/Axilla Exam Chest wall: Absent: tenderness - Routine Respiratory Exam Present: CTA bilaterally. Absent: respiratory distress, rhonchi - Routine Cardiovascular Exam Present: RRR, S1, S2. Absent: murmur, gallop, rubs - Routine Abdominal Exam Present: soft, normoactive bowel sounds. Absent: tenderness, distended, organomegaly, mass - Routine Extremities Exam Present: full ROM. Absent: cyanosis, clubbing, edema - Routine Skin Exam Present: intact, dry, warm. Absent: rash - Routine Neurological Exam Present: alert, oriented X3, CN II-XII intact. Absent: sensory deficit, motor deficit - Routine Psychiatric Exam Present: normal affect, cooperative Results - Labs CBC & Chem 7: 10/02/18 12:21 10/03/18 06:07 Assessment and Plan - Plan UTI , complicated with pseudomonal sepsis H/o kidney stones, remote + difficukty voiding change abx to cefepime dc vancomycin anticipate transition to oral quinolones on discharge CT abd/pel to exclude underlying pathology
[2018-10-04] MEDS ORDERED: Diatrizoate Meglum/Diatrizoate Sod Liq 9 ML UDC PO ONE (14:30)
[2018-10-04] MEDS: Enoxaparin Inj 30 MG/0.3 ML Syringe SQ SCH (14:39)
--- NOTE | 2018-10-04 15:05 | P.PNIM ---
Subjective Interval history: Mr. Le is fever free and feeling much better today. Blood culture grew out Aeromonas aeruginosa. Infectious disease changed his antibiotics to cefepime. He has no new complaints. Physical Exam Vital signs: Last Vital Signs Temp 97.7 F 10/04/18 12:00 Pulse 75 10/04/18 12:00 Resp 13 10/04/18 12:00 BP 127/68 10/04/18 12:00 Pulse Ox 96 10/04/18 12:00 Intake & Output 10/02/18 10/03/18 10/04/18 10/05/18 06:59 06:59 06:59 06:59 Intake Total 4000 / 4000 3960 / 3960 1350 / 1350 Balance 4000 / 4000 3960 / 3960 1350 / 1350 Weight 79.4 kg 79.4 kg Narrative: GENERAL: AAOx3, no acute distress SKIN: Warm and dry. No rashes HEAD: Atruamtic, normocephalic. EYES: No scleral icterus. No injection or drainage. ENT: Moist mucous membranes, patent nares, no erythema of oropharynx. NECK: Supple, trachea midline. No JVD or lymphadenopathy. Normal thyroid. CARDIOVASCULAR: Borderline tachycardia. No murmurs, gallops, or rubs. RESPIRATORY: Breath sounds clear equal bilaterally. No crackles or wheezes. No accessory muscle use. GASTROINTESTINAL: Abdomen soft, non-tender, nondistended, normal active bowel sounds MUSCULOSKELETAL: No cyanosis, or edema. NEURO: CN II-XII grossly intact, no focal deficits, no slurring of speech Results Labs CBC & Chem 7: 10/02/18 12:21 10/03/18 06:07 Labs: Microbiology 10/02/18 13:10 Blood - Peripheral Aerobic Blood Culture - Preliminary Pseudomonas aeruginosa 10/02/18 13:10 Blood - Peripheral Anaerobic Blood Culture - Preliminary No growth in 2 days 10/02/18 13:05 Blood - Peripheral Aerobic Blood Culture - Preliminary Pseudomonas aeruginosa 10/02/18 13:05 Blood - Peripheral Anaerobic Blood Culture - Preliminary No growth in 2 days 10/02/18 12:09 Clean Catch Urine Urine Culture - Final Pseudomonas aeruginosa Assessment and Plan Plan Pyelonephritis Ascending urinary tract infection with high-grade fever Patient's history only provides and so that he has a new hot tub, has a history of hemorrhoids Given Cipro with moderate improvement but now with positive blood cultures Ultrasound pending Pseudomonal sepsis Blood culture grew out pseudomonas aeruginosa Infectious disease changed his antibiotic to cefepime Anticipate eventual discharge on oral quinolone based on culture and sensitivity results Patient is currently afebrile and feeling much better Appreciate infectious disease consult Dehydration Resolved DVT Prophylaxis Lovenox Progress Note: Quality VTE Deep Vein Thrombosis/Pulmonary Embolism Present on Admission: No
--- NOTE | 2018-10-04 19:55 | CT ---
EXAM DATE: 10/04/2018 7:39 PM EST AGE/SEX: 57 years / Male INDICATIONS: Suprapubic abdominal with vomiting and diarrhea. CLINICAL DATA: This is the patient's initial encounter. Patient reports that signs and symptoms have been present for 1 day and indicates a pain score of 8/10. MEDICAL/SURGICAL HISTORY: Renal calculi. Diverticulitis. None. ORAL CONTRAST: No oral contrast ingested. RADIATION DOSE: 6.71 CTDI (mGy) COMPARISON: [facility], CT ABDOMEN & PELVIS W CONTRAST, 07/26/2017. . TECHNIQUE: Multiple contiguous axial images were obtained through the abdomen and pelvis following b olus infusion of 100 ml Omnipaque 350 (iohexol) nonionic water-soluble contrast as a single exam do se. No oral contrast ingested. Using automated exposure control and adjustment of the mA and/or kV a ccording to patient size, radiation dose was kept as low as reasonably achievable to obtain optimal d iagnostic quality images. DICOM format image data is available electronically for review and compari son. FINDINGS: Lower Lungs: There is peripheral increased interstitial disease or scarring seen at the lung bases. Liver: There is diffuse decreased attenuation to the liver. There is a focal 0.8 cm hypodensity seen at the superior aspect of the right lobe of the liver. This is nonspecific. There also appear to be m ultiple smaller faint hypodensity seen in the liver. Spleen: Homogeneous density without enlargement. Pancreas: Unremarkable without mass or calcification. Kidneys: Normal in size and shape. No evidence of hydronephrosis. Several small cysts are seen bilat erally. Adrenal Glands: Unremarkable. Aorta: The aorta and proximal iliac vessels are grossly unremarkable without aneurysmal dilation. T here are scattered atherosclerotic calcifications present. Bowel/Mesentery: There are colonic diverticula seen in the sigmoid region. Inflammatory change aroun d the sigmoid colon is not seen. Abdominal Wall: Intact. Retroperitoneum: There is some mild induration seen at the left lateral pelvic region at the anterio r retroperitoneal reflection region. The cause of this mild induration is not clearly identified. Thi s could relate to an inflamed ligament. The area does extend towards the left inguinal canal. There s ome mild thickening of the left inguinal canal region. This can be correlated clinically. Bladder: The bladder is diffusely thickened but this is likely secondary to lack of distention. Reproductive Organs: The prostate is enlarged. Inguinal: The inguinal region is unremarkable without evidence of adenopathy. Bony Structures: Unremarkable. CONCLUSION: 1. Inflammatory change at the left lateral lower pelvis and extending towards the left inguinal andie l could be related to ligamentous injury/inflammation. This can be correlated with patient's symptoms . 2. Hepatic steatosis. 3. Minimal heterogeneity to the liver with several small focal lesions. These could be further evalu ated with an MRI examination of the abdomen using a liver protocol. This could be performed as an out patient on a nonemergent basis. 4. Sigmoid colon diverticula without inflammatory change around the sigmoid colon. Electronically signed by: Yunior Rogers MD Board Certified Radiologist 10/04/2018 7:54 PM EST
[2018-10-05] MEDS: Acetaminophen 325 MG Tablet PO PRN ×6 (00:21→21:19)
[2018-10-05] MEDS: Senna/Docusate Sodium 8.6/50 MG Tablet PO SCH ×2 (08:03→21:20)
[2018-10-05] MEDS: Vancomycin Inj 1,000 MG in Sodium Chlor 0.9% Inj 250 ML IV.SIG SCH (12:56)
[2018-10-05] MEDS: Enoxaparin Inj 30 MG/0.3 ML Syringe SQ SCH (14:40)
--- NOTE | 2018-10-05 16:00 | P.PNIM ---
Subjective Interval history: Mr. Le is feeling well today, fevers have subsided and he has more energy than yesterday. I reviewed results with him explaining that Pseudomonas was present in his blood as well as his urine. By his history most likely source is his hot tub so he went to [facility] for cleaning out with double shocks with placement of water. He states that he used well water instead of city water for feeling hot tub. Second time around I recommended he use city water. Physical Exam Vital signs: Last Vital Signs Temp 97.6 F 10/05/18 12:00 Pulse 77 10/05/18 12:00 Resp 19 10/05/18 12:00 BP 140/79 10/05/18 12:00 Pulse Ox 98 10/05/18 12:00 Intake & Output 10/03/18 10/04/18 10/05/18 10/06/18 06:59 06:59 06:59 06:59 Intake Total 4000 / 4000 3960 / 3960 2450 / 2450 350 / 350 Balance 4000 / 4000 3960 / 3960 2450 / 2450 350 / 350 Weight 79.4 kg 79.4 kg 79.4 kg Narrative: GENERAL: AAOx3, no acute distress SKIN: Warm and dry. No rashes HEAD: Atruamtic, normocephalic. EYES: No scleral icterus. No injection or drainage. ENT: Moist mucous membranes, patent nares, no erythema of oropharynx. NECK: Supple, trachea midline. No JVD or lymphadenopathy. Normal thyroid. CARDIOVASCULAR: Borderline tachycardia. No murmurs, gallops, or rubs. RESPIRATORY: Breath sounds clear equal bilaterally. No crackles or wheezes. No accessory muscle use. GASTROINTESTINAL: Abdomen soft, non-tender, nondistended, normal active bowel sounds MUSCULOSKELETAL: No cyanosis, or edema. NEURO: CN II-XII grossly intact, no focal deficits, no slurring of speech Results Labs CBC & Chem 7: 10/02/18 12:21 10/03/18 06:07 Labs: Microbiology 10/02/18 13:10 Blood - Peripheral Aerobic Blood Culture - Final Pseudomonas aeruginosa 10/02/18 13:10 Blood - Peripheral Anaerobic Blood Culture - Preliminary No growth in 3 days 10/02/18 13:05 Blood - Peripheral Aerobic Blood Culture - Final Pseudomonas aeruginosa 10/02/18 13:05 Blood - Peripheral Anaerobic Blood Culture - Preliminary No growth in 3 days 10/02/18 12:09 Clean Catch Urine Urine Culture - Final Pseudomonas aeruginosa Imaging Imaging: Impressions Abdomen/Pelvis CT 10/04/18 00:00 CONCLUSION: 1. Inflammatory change at the left lateral lower pelvis and extending towards the left inguinal canal could be related to ligamentous injury/inflammation. This can be correlated with patient's symptoms. 2. Hepatic steatosis. 3. Minimal heterogeneity to the liver with several small focal lesions. These could be further evaluated with an MRI examination of the abdomen using a liver protocol. This could be performed as an outpatient on a nonemergent basis. 4. Sigmoid colon diverticula without inflammatory change around the sigmoid colon. Assessment and Plan Plan Pyelonephritis Ascending urinary tract infection with high-grade fever Patient's history only provides and so that he has a new hot tub, has a history of hemorrhoids Given Cipro with moderate improvement but now with positive blood cultures Symptoms currently resolved Pseudomonal sepsis Blood culture grew out pseudomonas aeruginosa Infectious disease changed his antibiotic to cefepime Anticipate discharge soon on oral quinolone Patient is currently afebrile and feeling much better Appreciate infectious disease consult DVT Prophylaxis Lovenox Discharge planning We will await clearance from infectious disease Progress Note: Quality VTE Deep Vein Thrombosis/Pulmonary Embolism Present on Admission: No
--- NOTE | 2018-10-05 17:41 | P.PNID ---
Subjective Remarks: pt is feeling much better still some tenderness in L inguinal area Pt reports multiple surgeriesd on his L inguinal hernia including one in 2015 and rem,mote surgery with mesh CT findings dw radiologist. Apparently some non specific changees in that area , however no drainable fluid collection afebrile Antibiotics: cefepime Allergies/Adverse Reactions: Allergies penicillin G Allergy (Unknown, Verified 10/02/18 18:19) Rash Sulfa (Sulfonamide Antibiotics) Allergy (Unknown, Verified 10/02/18 18:19) Rash Objective Vital Signs 10/04/18 19:52 10/05/18 00:00 10/05/18 08:00 Temperature 97.7 F 97.7 F 97.9 F Pulse Rate 77 67 77 Respiratory Rate 18 18 19 Blood Pressure 139/80 115/62 127/74 Pulse Oximetry 97 97 96 10/05/18 12:00 10/05/18 16:00 Temperature 97.6 F 97.7 F Pulse Rate 77 69 Respiratory Rate 19 19 Blood Pressure 140/79 131/65 Pulse Oximetry 98 96 Intake & Output 10/04/18 10/05/18 10/05/18 18:59 06:59 18:59 Intake Total 1350 / 1350 1100 / 1100 1150 / 1150 Balance 1350 / 1350 1100 / 1100 1150 / 1150 Weight 79.4 kg Intake: IV 1350 / 1350 200 / 200 350 / 350 NS Inj 1,000 ML @ 100 mls/hr IV 1000 / 1000 .CONT .Q10H GLADIS Rx#:[id number] Maxipime Inj 2,000 MG In NS Inj 100 / 100 200 / 200 100 / 100 100 ML @ 200 mls/hr IV.SIG Q8H GLADIS Rx#:[id number] Vancomycin Inj 1,000 MG In NS 250 / 250 250 / 250 Inj 250 ML @ 250 mls/hr IV.SIG Q24H GLADIS Rx#:[id number] Oral 900 / 900 800 / 800 Other: # Voids 3 3 2 Date of Last Bowel Movement 10/03/18 10/04/18 10/04/18 10/02/18 13:10 Blood - Peripheral Aerobic Blood Culture - Final Pseudomonas aeruginosa 10/02/18 13:10 Blood - Peripheral Anaerobic Blood Culture - Preliminary No growth in 3 days 10/02/18 13:05 Blood - Peripheral Aerobic Blood Culture - Final Pseudomonas aeruginosa 10/02/18 13:05 Blood - Peripheral Anaerobic Blood Culture - Preliminary No growth in 3 days 10/02/18 12:09 Clean Catch Urine Urine Culture - Final Pseudomonas aeruginosa 10/02/18 12:21 Nasal Wash Influenza Types A,B Antigen - Final Negative for FLU A and B antigen Infection due to influenza A or B cannot be ruled out since the antigen present in the sample may be below the detection limit of the test. Imaging: ITS Impressions Abdomen/Pelvis CT 10/04/18 00:00 CONCLUSION: 1. Inflammatory change at the left lateral lower pelvis and extending towards the left inguinal canal could be related to ligamentous injury/inflammation. This can be correlated with patient's symptoms. 2. Hepatic steatosis. 3. Minimal heterogeneity to the liver with several small focal lesions. These could be further evaluated with an MRI examination of the abdomen using a liver protocol. This could be performed as an outpatient on a nonemergent basis. 4. Sigmoid colon diverticula without inflammatory change around the sigmoid colon. Physical Exam: GENERAL: NAD SKIN: Warm and dry. No rash HEAD: Atraumatic. Normocephalic. EYES: Pupils equal and round. No scleral icterus. No injection or drainage. ENT: No nasal bleeding or discharge. Mucous membranes pink and moist. NECK: Trachea midline. No JVD. CARDIOVASCULAR: Regular rate and rhythm. No murmur RESPIRATORY: No accessory muscle use. Clear to auscultation. Breath sounds equal bilaterally. GASTROINTESTINAL: Abdomen soft, non-tender, nondistended. Hepatic and splenic margins not palpable. Mild tenderness MUSCULOSKELETAL: Extremities without clubbing, cyanosis, or edema. No obvious deformities. NEUROLOGICAL: Awake and alert. No obvious cranial nerve deficits. Motor grossly within normal limits. Five out of 5 muscle strength in the arms and legs. Normal speech. PSYCHIATRIC: Appropriate mood and affect; insight and judgment normal. Assessment and Plan - Plan UTI , complicated with pseudomonal sepsis H/o kidney stones, remote + difficty voiding L inguinanl canal hernia repair with remote mesh placement, CT w/o flui d collection but Inflammatory change at the left lateral lower pelvis Prostatic enlargement Ok to dc home with completing abx with levaquine or cipro Repeat CT abd/pel if ongoing pain fu with Dr Roper if cont to have discomfort in the L inguinal area
--- NOTE | 2018-10-05 17:59 | P.DS ---
DS: Providers Date of admission: 10/02/18 14:05 Primary care physician: Alhaji Castro MD Consults: 10/03/18 12:01 HUB Only Consult Order Routine Consulting Provider: [facility],Insurance 10/03/18 12:58 Consult to Infectious Diseases Routine Consulting Provider: Gifty Parmar Reason for Consultation: 57M presented with pyelonephritis, blood cultures show gram negative rods. Anbibiotics expanded, please review selections and assist with recommendation for duration of treatment course. Notified:: Service Spoke with:: Jaja Date Notified:: 10/03/18 Time Notified:: 13:10 Ordering Provider: MILEY Brief History from admission: 57 yo m presents with a few days of dysuria and urgency followed by vomiting last night poor appetite, and muscle aches in his legs and feeling very weak and light headed with chills off and on. He denies fever, hematuria, flank pain, diarrhea, recent antibiotic use, he does have a history of kidney stones in the past. In the ER he is found to have a wbc of 29 and evidence of a uti. PMHX: dyslipidemia kidney stones, ASD PSXhx: kidney stone retreival ASD repair in 1966 3 hernia repairs left inguinal, 1 on right knee arthroscopy Soc hx : denies tobacco, drinks wine 3-5 x wk ALL: bactrim, PCN FAM HX no premature cad, cva, ca DS: Summary 57M admitted for a high fever in the context of a UTI with suspect pylenephritis that turned out to be pseudomonas spesis. Antibiotics were adjusted through his stay based on microbiology findings with final treatment on Cefepime. He became afebrile following addition of second IV antibiotic. C& S grew out pseudomonas that is sensitive to Cipro. Case was discussed with infectious disease who agrees that he appears healthy today and may be discharged home on Ciprofloxacin, 750mg x 12 more days for total of 2 weeks (+ 1 day) of treatment. He is ambulating, eating, afebrile, and has no active complaints. He is instructed to follow up withPCP Dr. Marquez within 1-2 weeks. Time Spent with Patient Total time spent providing and/or coordinating discharge services: Less than 30 minutes Quality: VTE Deep Vein Thrombosis/Pulmonary Embolism Present on Admission: No Results Labs on day of discharge: Preliminary micro results at discharge 10/02/18 13:10 Anaerobic Blood Culture - Preliminary Blood - Peripheral No growth in 3 days 10/02/18 13:05 Anaerobic Blood Culture - Preliminary Blood - Peripheral No growth in 3 days Impressions ITS Impressions Abdomen/Pelvis CT 10/04/18 00:00 CONCLUSION: 1. Inflammatory change at the left lateral lower pelvis and extending towards the left inguinal canal could be related to ligamentous injury/inflammation. This can be correlated with patient's symptoms. 2. Hepatic steatosis. 3. Minimal heterogeneity to the liver with several small focal lesions. These could be further evaluated with an MRI examination of the abdomen using a liver protocol. This could be performed as an outpatient on a nonemergent basis. 4. Sigmoid colon diverticula without inflammatory change around the sigmoid colon. Discharge Plan Discharge Disposition Patient Disposition: 01 Discharge Home Discharge Condition Condition: Stable Discharge Order Discharge Orders: Discharge Order (Routine); Ordered 10/05/18 Ordered By: Antoine Rock Discharge Details Anticipated Discharge Date: 10/05/18 Physicians Team Primary Care Provider: Alhaji Castro Attending Provider: Antoine Rock Other Providers: [facility],Insurance ; Gifty Parmar Rxs /Orders / Referrals /Forms Prescriptions: New ciprofloxacin HCl 750 mg tablet 750 mg PO BID 12 Days Qty: 24 RF: 0 No Action No Known Home Medications RF: 0 Referrals: Alhaji Castro MD [Primary Care Provider] - See Instructions Discharge Interventions Interventions: Discharge Planning - Case Management Last Done: 10/03/18 17:16 Status ED Status: Left Department
[2018-10-06] MEDS: Acetaminophen 325 MG Tablet PO PRN (05:22)
[2018-10-06 08:17] VITALS: BP 131/77; PULSE 84; RESP 19; TEMP 97.2; O2SAT 96
[2018-10-06] MEDS: Senna/Docusate Sodium 8.6/50 MG Tablet PO SCH (08:25)
--- NOTE | 2018-10-06 12:54 | P.PNIM ---
Subjective Interval history: Discharge was placed last night for first thing this morning. Patient was awaiting removal of IV and ready to go home when I saw him. No complaints. Physical Exam Vital signs: Last Vital Signs Temp 97.2 F L 10/06/18 08:00 Pulse 84 10/06/18 08:00 Resp 19 10/06/18 08:00 BP 131/77 10/06/18 08:00 Pulse Ox 96 10/06/18 08:00 Intake & Output 10/04/18 10/05/18 10/06/18 10/07/18 06:59 06:59 06:59 06:59 Intake Total 3960 / 3960 2450 / 2450 2310 / 2310 Balance 3960 / 3960 2450 / 2450 2310 / 2310 Weight 79.4 kg 79.4 kg 81.7 kg Narrative: GENERAL: AAOx3, no acute distress SKIN: Warm and dry. No rashes HEAD: Atruamtic, normocephalic. EYES: No scleral icterus. No injection or drainage. ENT: Moist mucous membranes, patent nares, no erythema of oropharynx. NECK: Supple, trachea midline. No JVD or lymphadenopathy. Normal thyroid. CARDIOVASCULAR: Borderline tachycardia. No murmurs, gallops, or rubs. RESPIRATORY: Breath sounds clear equal bilaterally. No crackles or wheezes. No accessory muscle use. GASTROINTESTINAL: Abdomen soft, non-tender, nondistended, normal active bowel sounds MUSCULOSKELETAL: No cyanosis, or edema. NEURO: CN II-XII grossly intact, no focal deficits, no slurring of speech Results Labs CBC & Chem 7: 10/02/18 12:21 10/03/18 06:07 Labs: Microbiology 10/02/18 13:10 Blood - Peripheral Aerobic Blood Culture - Final Pseudomonas aeruginosa 10/02/18 13:10 Blood - Peripheral Anaerobic Blood Culture - Preliminary No growth in 4 days 10/02/18 13:05 Blood - Peripheral Aerobic Blood Culture - Final Pseudomonas aeruginosa 10/02/18 13:05 Blood - Peripheral Anaerobic Blood Culture - Preliminary No growth in 4 days Assessment and Plan Plan Pyelonephritis Ascending urinary tract infection with high-grade fever Patient's history only provides and so that he has a new hot tub, has a history of hemorrhoids Continue Cipro for 12 more days Pseudomonal sepsis Blood culture grew out pseudomonas aeruginosa Infectious disease changed his antibiotic to cefepime Infectious disease recommended ciprofloxacin on discharge for total of 14 days including cefepime treatment Discharge planning Cleared for discharge by infectious disease, discharge placed first thing this morning, patient going home today Progress Note: Quality VTE Deep Vein Thrombosis/Pulmonary Embolism Present on Admission: No
== END 2018-10-06 09:50 | disposition home or self-care (01) ==
LOC: NEPD 11:31 → NEDA 14:05 → N07 15:20
PROVIDERS: ADMIT Family Medicine; ATTEND Family Medicine